=== PATIENT | female | born 1960 | race Caucasian/White ===

== ENCOUNTER 2017-02-18 18:38 | Emergency (ER) | payer MEDICAID, OTHER ==
[~2017-02-18] VITALS: Ht 147.3 cm; Wt 58.0 kg
[2017-02-18 18:59] VITALS: Ht 147.3 cm; Wt 58.0 kg
[2017-02-18] MEDS ORDERED: LORAZEPAM 2 MG INJ IV ONE (20:30)
[2017-02-18] MEDS ORDERED: SOD CHLORIDE 0.9% 1,000 ML IV STA (20:30)
[2017-02-18 20:43] LABS: ADD SCAN DIFF NO
[2017-02-18 20:46] LABS: BASOPHIL # 0.1 10^3/ul (0.0-0.1); BASOPHILS % 0.9 % (0.0-2.0); EOSINOPHILS # 0.4 10^3/ul (0.0-0.5); EOSINOPHILS % 3.8 % (0.0-7.0); HEMATOCRIT 37.6 % (37.0-47.0); HEMOGLOBIN 13.3 g/dl (12.0-16.0); LYMPHOCYTES # 2.7 10^3/ul (0.8-2.9); LYMPHOCYTES % 28.7 % (15.0-51.0); MEAN CORPUSCULAR HGB CONC 35.4 g/dl (32.0-37.0); MEAN CORPUSCULAR VOLUME 93.3 fl (82.0-101.0); MEAN PLATELET VOLUME 9.1 fl (7.4-10.4); MONOCYTE # 0.5 10^3/ul (0.3-0.9); MONOCYTES % 5.5 % (0.0-11.0); NEUTROPHIL # 5.7 10^3/ul (1.6-7.5); NEUTROPHILS % 60.6 % (39.0-77.0); PLATELET COUNT 311 10^3/UL (140-415); RED BLOOD COUNT 4.03 10^6/ul (4.20-5.40); RED CELL DISTRIBUTION WIDTH 11.7 % (11.5-14.5); WHITE BLOOD COUNT 9.4 10^3/ul (4.8-10.8)
[2017-02-18 21:00] LABS: CHLORIDE 101 mmol/L (97-110); POTASSIUM 3.9 mmol/L (3.5-5.1); SODIUM 141 mmol/L (135-144)
[2017-02-18 21:01] LABS: INR 0.99; PARTIAL THROMBOPLASTIN TIME 29.3 Sec (25.0-35.0); PROTIME 13.1 Sec (12.2-14.2)
[2017-02-18 21:02] LABS: CREATININE 0.75 mg/dl (0.44-1.00)
[2017-02-18 21:03] LABS: ANION GAP 16 (8-16); BLOOD UREA NITROGEN 17 mg/dl (7-20); CARBON DIOXIDE 28 mmol/L (21-31); GLUCOSE 120 mg/dl (70-220)
[2017-02-18 21:04] LABS: CALCIUM 9.3 mg/dl (8.4-10.2)
--- NOTE | 2017-02-18 21:07 | RADRPT ---
PROCEDURE: CT Head without contrast. CLINICAL INDICATION: Dizziness TECHNIQUE: The study was performed utilizing a GE 64-slice multidetector CT scanner. Direct spiral axial CT images of the brain were obtained from the vertex to the skull base without contrast. Cor onal and sagittal reformat images are provided. The CTDI vol is 45.01 mGy and the DLP is 720.23 mGy -cm. The images were reviewed on a PACS workstation. COMPARISON: No prior studies are available for comparison. FINDINGS: A cystic structure is seen in the right parietal region near the vertex which indicates with the pos terior body of the right lateral ventricle. No evidence of hydrocephalus is seen. The remainder of the ventricles and cortical foci are otherwise within normal limits. Irregularity of the inner tab le of the calvarium is seen involving the right frontal parietal calvarium. Suggestion of chronic p ostsurgical changes in the right parietal calvarium is also noted. The summers-white matter different iation is maintained. No intra or extra-axial fluid collection or mass effect or shift in the midli ne structures is seen. The visualized paranasal sinuses, mastoid air cells, orbits, and remainder o f the calvarium are unremarkable. IMPRESSION: 1. 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 The possibility of schizencephaly cannot be excluded. Comparison with p preston would be helpful available. 2. Irregularity of the inner table of the right frontal parietal calvarium with the suggestion of c hronic postsurgical changes which may be from a prior craniotomy. Correlation to prior surgical his tory is suggested. In addition, comparison with priors would be helpful available. RPTAT: HPNM Physician Uche Date Time Electronically viewed and signed by Physician Uche on 02/18/2017 21:07 /
[2017-02-18 21:15] LABS: TROPONIN-I < 0.012 ng/ml (0.00-0.12)
[2017-02-18] MEDS ORDERED: ASPI-664 PO (21:26)
[2017-02-18] MEDS ORDERED: EXCED PO (21:27)
--- NOTE | 2017-02-18 21:42 | RADRPT ---
PROCEDURE: Chest x-ray CLINICAL INDICATION: Chest pain TECHNIQUE: Chest single view COMPARISON: None FINDINGS: The heart is normal in size. The pulmonary vessels are normal in caliber. The lungs are clear. Th e costophrenic angles are sharp. The visualized bony thorax is unremarkable. IMPRESSION: No acute cardiopulmonary disease. RPTAT: HH .Elias Peralta MD, Date Time Electronically viewed and signed by .Elias Peralta MD, MD on 02/18/2017 21:42 .W/
--- NOTE | 2017-02-18 22:00 | ERD ---
ER Documentation Chief Complaint Date/Time DATE: 02/18/17 TIME: 21:58 Chief Complaint dizziness and chest pain 6/10 and left arm numbness x 2 yrs and anxiety HPI Patient is a 56-year-old female with coronary disease who presents with chest pain. She said that she has had chest pain for "2 years". She describes it as a heavy type feeling. She feels dizzy and her left arm feels heavy. She went to [place] and her friend told her to come to the ER because she was dizzy and fell to the ground. She denies pain at this time. Her mother last month and she feels like it might be related to this. She does not currently have a primary doctor. Upon review of old medical records this is the patient's first visit to the emergency department. ROS All systems reviewed and are negative except as per history of present illness. Medications Home Meds Reported Medications Acetaminophen/Aspirin/Caffeine* (Excedrin*) 1 Tab Tab, 1 TAB PO DAILY, TAB 02/18/17 Aspirin* (Aspirin* EC) 81 Mg Tablet.dr, 81 MG PO DAILY, TAB 02/18/17 Allergies Allergies: Coded Allergies: Penicillins (Unverified Allergy, Unknown, 02/18/17) PMhx/Soc Medical and Surgical Hx: pt denies Medical Hx, pt denies Surgical Hx Hx Alcohol Use: No Hx Substance Use: No Hx Tobacco Use: No Smoking Status: Never smoker FmHx Family History: coronary disease Physical Exam Vitals Vital Signs Date Time Temp Pulse Resp B/P Pulse Ox O2 Delivery O2 Flow Rate FiO2 02/18/17 18:59 99.0 78 20 122/84 98 Physical Exam Const: No acute distress Head: Atraumatic Eyes: Normal Conjunctiva ENT: Normal External Ears, Nose and Mouth. Neck: Full range of motion..~ No meningismus. Resp: Clear to auscultation bilaterally Cardio: Regular rate and rhythm, no murmurs Abd: Soft, non tender, non distended. Normal bowel sounds Skin: No petechiae or rashes Back: No midline or flank tenderness Ext: No cyanosis, or edema Neur: Awake and alert Psych: Anxious Result Diagram: 02/18/17202902/18/17 2030 Results 24 hrs Laboratory Tests Test 02/18/17 20:30 White Blood Count 9.410^3/ul Red Blood Count 4.0310^6/ul Hemoglobin 13.3g/dl Hematocrit 37.6% Mean Corpuscular Volume 93.3fl Mean Corpuscular Hemoglobin 33.0pg Mean Corpuscular Hemoglobin Concent 35.4g/dl Red Cell Distribution Width 11.7% Platelet Count 96060^3/UL Mean Platelet Volume 9.1fl Neutrophils % 60.6% Lymphocytes % 28.7% Monocytes % 5.5% Eosinophils % 3.8% Basophils % 0.9% Nucleated Red Blood Cells % 0.0/100WBC Neutrophils # 5.710^3/ul Lymphocytes # 2.710^3/ul Monocytes # 0.510^3/ul Eosinophils # 0.410^3/ul Basophils # 0.110^3/ul Nucleated Red Blood Cells # 0.010^3/ul Prothrombin Time 13.1Sec Prothrombin Time Ratio 1.0 INR International Normalized Ratio 0.99 Activated Partial Thromboplast Time 29.3Sec Sodium Level 141mmol/L Potassium Level 3.9mmol/L Chloride Level 101mmol/L Carbon Dioxide Level 28mmol/L Anion Gap 16 Blood Urea Nitrogen 17mg/dl Creatinine 0.75mg/dl Glucose Level 120mg/dl Calcium Level 9.3mg/dl Troponin I < 0.012ng/ml Current Medications Medications (Trade) Dose Ordered Sig/Evan Route PRN Reason Start Time Stop Time Status Last Admin Dose Admin Sodium Chloride (NS) 1,000 ml @ 1,000 mls/hr Q1H STAT IV 02/18/17 20:30 02/18/17 21:29 DC 02/18/17 20:53 Lorazepam (Ativan) 0.5 mg ONCE ONCE IV 02/18/17 20:30 02/18/17 20:32 DC 02/18/17 20:54 Procedures/MDM EKG read by me: Rate/Rhythm: Regular rate and rhythm at a rate of 78 Intervals: Normal Impression: No evidence of ischemia or arrhythmia Chest X-ray 1V Interpreted by me: Soft Tissue: No acute abnormalities Bones: No acute abnormalities Mediastinum/Cardiac Silhouette/Lungs: No acute abnormalities PROCEDURE: CT Head without contrast. CLINICAL INDICATION: Dizziness TECHNIQUE: The study was performed utilizing a GE 64-slice multidetector CT scanner. Direct spiral axial CT images of the brain were obtained from the vertex to the skull base without contrast. Coronal and sagittal reformat images are provided. The CTDI vol is 45.01 mGy and the DLP is 720.23 mGy-cm. The images were reviewed on a PACS workstation. COMPARISON: No prior studies are available for comparison. FINDINGS: A cystic structure is seen in the right parietal region near the vertex which indicates with the posterior body of the right lateral ventricle. No evidence of hydrocephalus is seen. The remainder of the ventricles and cortical foci are otherwise within normal limits. Irregularity of the inner table of the calvarium is seen involving the right frontal parietal calvarium. Suggestion of chronic postsurgical changes in the right parietal calvarium is also noted. The summers-white matter differentiation is maintained. No intra or extra-axial fluid collection or mass effect or shift in the midline structures is seen. The visualized paranasal sinuses, mastoid air cells, orbits, and remainder of the calvarium are unremarkable. IMPRESSION: 1. 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 The possibility of schizencephaly cannot be excluded. Comparison with priors would be helpful available. 2. Irregularity of the inner table of the right frontal parietal calvarium with the suggestion of chronic postsurgical changes which may be from a prior craniotomy. Correlation to prior surgical history is suggested. In addition, comparison with priors would be helpful available. RPTAT: HPNM Physician Uche Date Time Electronically viewed and signed by Physician Uche on 02/18/2017 21 :07 Patient is a 56-year-old female with coronary disease who presents with multiple complaints. She has chest pain and dizziness. Her symptoms have been there for 2 years and at this point I doubt true acute coronary syndrome. I doubt intracranial hemorrhage or mass. I doubt stroke. I believe outpatient management is appropriate but the patient went to follow-up closely with the local clinics within 24-48 hours she does not currently have a primary doctor. She can return sooner for any worsening symptoms. The patient understands the plan and is okay for discharge at this time. She was given copies of her laboratory studies and imaging test results prior to discharge. She will likely need follow-up for her CT scan results. Departure Diagnosis: Primary Impression: Dizziness Additional Impression: Chest pain Chest pain type: unspecified Qualified Code: R07.9 - Chest pain, unspecified type Condition: Fair Patient Instructions: Chest Pain, Uncertain Cause, Dizziness, Unk Cause Referrals: [facility] Usted se ruffin hecho un examen mdico de control que le indica que no est en kofi condicin que requiera tratamiento urgente en el Departamento de Emergencia. Un estudio ms profundo y el tratamiento de shore condicin pueden esperar sin ningn riesgo hasta que usted sea atendida/o en el consultorio de shore mdico o kofi cl robbin. Es responsabilidad suya arreglar kofi janice para el seguimiento del yuki. MANEJO DE CONDICIONES NO URGENTES EN EL FUTURO 1) Si usted tiene un mdico de atencin primaria: Usted debera llamar a shore mdico de atencin primaria antes de venir al departamento de emergencia. Despus de las horas de consultorio, shore doctor o shore asociado/a est disponible por telfono. El mdico o enfermero de pierre en el servicio telefnico puede asesorarle por munir medio para atender el problema, o yuki contrario se puede programar kofi janice. 2) Si usted no tiene un mdico de atencin primaria: Llame al mdico o clnica de referencia que aparece abajo arturo las horas de consultorio para hacer kofi janice para que le vean. CLINICAS: [facility] [phone] [facility] [place] [phone] [facility] [phone] [facility] [phone] [place] [phone] [facility] [phone] Additional Instructions: Llame al doctor MAANA y swetha kofi JANICE PARA DENTRO DE 1-2 ARELLANO.Dgale a la secretaria que nosotros le instruimos hacer esta janice.Avise o llame si shore condicin se empeora antes de la janice. Regresa aqui si peor o no mejor. LISA MCCABE MD February 18, 2017 22:00
[2017-02-18 22:13] VITALS: BP 120/82; PULSE 75; RESP 20; TEMP 99
== END 2017-02-18 22:18 | disposition home or self-care (01) ==
LOC: E/R 18:38
DX: R42 Dizziness and giddiness (principal); R07.9 Chest pain, unspecified; Z79.82 Long term (current) use of aspirin
CPT/HCPCS: 36415; 70450; 71010; 80048; 84484; 85025; 85610; 85730; 93005; 96374; J2060; J7030; Z7502